=== PATIENT | female | born 1965 | race Caucasian/White ===

== ENCOUNTER 2018-04-06 11:42 | Emergency (ER) | payer SELFPAY ==
[~2018-04-06] VITALS: Ht 175.2 cm; Wt 56.7 kg
[~2018-04-06 11:42] MED LIST: DELTASONE20 M1 PO; FLEXERIL10 MG PO; IBU800 M1 PO; LEVAQUIN750 M1 PO; LEVOFLOXACIN750 M2 PO; NORCO 325 MG-51 TAB PO; PARAFON FORTE500 MG PO; PREDNICOT10 MG PO; PREDNICOT20 MG PO; PROAIR HFA8.5 GM INH; [UNRECOGNIZED DRUG - OTHER] PO
[2018-04-06 11:43] VITALS: BP 122/72
[2018-04-06] MEDS ORDERED: IBU800 MG PO (13:26)
== END 2018-04-06 13:30 | disposition home or self-care (01) ==
LOC: ED 11:42
DX: S92.354A Nondisplaced fracture of fifth metatarsal bone, right foot, initial encounter for closed fracture (principal); S93.401A Sprain of unspecified ligament of right ankle, initial encounter; F17.200 Nicotine dependence, unspecified, uncomplicated; Z79.2 Long term (current) use of antibiotics; Z79.899 Other long term (current) drug therapy; W17.89XA Other fall from one level to another, initial encounter; Y93.01 Activity, walking, marching and hiking; Y92.098 Other place in other non-institutional residence as the place of occurrence of the external cause; Y99.8 Other external cause status

== ENCOUNTER → 2018-05-03 | Outpatient (CLI) | payer SELFPAY ==
[~2018-05-03] MED LIST changes: +IBU800 MG PO
== END | disposition home or self-care (01) ==
LOC: ORTHO 01:55 → LAB 01:55 → ORTHO 21:32
DX: S92.354D Nondisplaced fracture of fifth metatarsal bone, right foot, subsequent encounter for fracture with routine healing (principal); E55.9 Vitamin D deficiency, unspecified; X58.XXXD Exposure to other specified factors, subsequent encounter

== ENCOUNTER → 2018-06-02 | Outpatient (CLI) | payer SELFPAY | END | disposition home or self-care (01) | LOC: ORTHO 02:57 | DX: S92.354D Nondisplaced fracture of fifth metatarsal bone, right foot, subsequent encounter for fracture with routine healing (principal); X58.XXXD Exposure to other specified factors, subsequent encounter ==

== ENCOUNTER → 2018-07-07 | Outpatient (CLI) | payer SELFPAY | END | disposition home or self-care (01) | LOC: ORTHO 02:36 | DX: S92.354D Nondisplaced fracture of fifth metatarsal bone, right foot, subsequent encounter for fracture with routine healing (principal); X58.XXXD Exposure to other specified factors, subsequent encounter ==

== ENCOUNTER → 2018-08-07 | Outpatient (CLI) | payer SELFPAY | END | disposition home or self-care (01) | LOC: ORTHO 00:33 | DX: S92.354D Nondisplaced fracture of fifth metatarsal bone, right foot, subsequent encounter for fracture with routine healing (principal); X58.XXXD Exposure to other specified factors, subsequent encounter ==

== ENCOUNTER → 2018-09-05 | Outpatient (CLI) | payer SELFPAY | END | disposition home or self-care (01) | LOC: ORTHO 00:07 | DX: S92.354K Nondisplaced fracture of fifth metatarsal bone, right foot, subsequent encounter for fracture with nonunion (principal); X58.XXXD Exposure to other specified factors, subsequent encounter ==

== ENCOUNTER → 2018-10-18 | Outpatient (CLI) | payer SELFPAY | END | disposition home or self-care (01) | LOC: ORTHO 01:22 | DX: S92.354K Nondisplaced fracture of fifth metatarsal bone, right foot, subsequent encounter for fracture with nonunion (principal); X58.XXXD Exposure to other specified factors, subsequent encounter; M19.071 Primary osteoarthritis, right ankle and foot ==

== ENCOUNTER 2021-11-22 09:12 | Emergency (ER) | payer SELFPAY ==
[~2021-11-22] VITALS: Ht 175.2 cm; Wt 54.4 kg
[2021-11-22 09:22] VITALS: BP 106/76
[2021-11-22] MEDS ORDERED: TYLENOL325 M1 PO (09:47)
[2021-11-22] MEDS ORDERED: NAPROXEN250 MG PO (09:47)
[2021-11-22] MEDS ORDERED: AMOXICILLIN500 M3 PO ×2 (09:47)
[2021-11-22] MEDS ORDERED: DECADRON6 M1 PO (22:23)
[2021-11-22] MEDS ORDERED: CLEOCIN HCL300 MG PO (22:23)
[2021-11-23] MEDS ORDERED: PREDNISONE50 MG PO (21:10)
== END 2021-11-22 09:56 | disposition home or self-care (01) ==
LOC: ED 09:12
DX: K04.7 Periapical abscess without sinus (principal); J44.9 Chronic obstructive pulmonary disease, unspecified; Z98.890 Other specified postprocedural states; F17.200 Nicotine dependence, unspecified, uncomplicated

== ENCOUNTER 2021-11-22 21:37 | Emergency (ER) | payer SELFPAY ==
[~2021-11-22] VITALS: Ht 175.2 cm; Wt 54.4 kg
[~2021-11-22 21:37] MED LIST changes: +AMOXICILLIN500 M3 PO; +NAPROXEN250 MG PO; +TYLENOL325 M1 PO
[2021-11-22 21:53] VITALS: BP 150/74
[2021-11-22] MEDS ORDERED: DECADRON6 M1 PO (22:23)
[2021-11-22] MEDS ORDERED: CLEOCIN HCL300 MG PO (22:23)
[2021-11-23] MEDS ORDERED: PREDNISONE50 MG PO (21:10)
== END 2021-11-22 22:55 | disposition home or self-care (01) ==
LOC: ED 21:37
DX: L50.9 Urticaria, unspecified (principal); Z98.890 Other specified postprocedural states

== ENCOUNTER 2021-11-23 20:44 | Emergency (ER) | payer SELFPAY ==
[~2021-11-23] VITALS: Ht 175.2 cm; Wt 54.4 kg
[~2021-11-23 20:44] MED LIST changes: +CLEOCIN HCL300 MG PO; +DECADRON6 M1 PO
[2021-11-23 20:56] VITALS: BP 140/86
[2021-11-23] MEDS ORDERED: PREDNISONE50 MG PO (21:10)
== END 2021-11-23 21:41 | disposition home or self-care (01) ==
LOC: ED 20:44
DX: R21 Rash and other nonspecific skin eruption (principal); R22.0 Localized swelling, mass and lump, head; L29.9 Pruritus, unspecified; Z98.890 Other specified postprocedural states; F17.200 Nicotine dependence, unspecified, uncomplicated